=== PATIENT | female | born 1990 | race Caucasian/White ===

== ENCOUNTER 2019-08-11 17:41 | Emergency (ER) | payer BC ==
[~2019-08-11] VITALS: Ht 175.3 cm; Wt 76.7 kg
[2019-08-11] MEDS ORDERED: LOMAIRA8 MG PO (17:53)
[2019-08-11 17:54] LABS: URINE BILIRUBIN NEGATIVE (Negative); URINE BLOOD 1+ (Negative); URINE CLARITY CLEAR; URINE COLOR YELLOW; URINE GLUCOSE-RANDOM NEGATIVE (Negative); URINE KETONES NEGATIVE (Negative); URINE LEUKOCYTES NEGATIVE (Negative); URINE NITRITE NEGATIVE (Negative); URINE PROTEIN NEGATIVE (Negative); URINE SPECIFIC GRAVITY 1.025 (1.005-1.030); URINE UROBILINOGEN 0.2 E.U./dl (0.2-1.0)
[2019-08-11] MEDS ORDERED: AMITRIPTYLINE H25 M2 PO (17:54)
[2019-08-11] MEDS ORDERED: PAXIL20 MG PO (17:54)
[2019-08-11 18:02] LABS: MUCUS None Seen strn/LPF (None Seen); SQUAMOUS >10 Many /LPF (0-3); URINE RBC 0-2 Rare /HPF (0-2); URINE WBC 0-5 Rare /HPF (0-5)
[2019-08-11 18:03] LABS: BACTERIA 1-9 Few /HPF (None Seen); CASTS None Seen /LPF (None Seen); CRYSTALS None Seen /LPF (None Seen)
[2019-08-11 18:06] LABS: AMP/METHAMP Negative (Negative); BARBITURATES Negative (Negative); BENZODIAZEPINES Negative (Negative); COCAINE Negative (Negative); METHADONE Negative (Negative); OPIATES Negative (Negative); PCP Negative (Negative); THC Negative (Negative)
[2019-08-11 18:08] LABS: HEMATOCRIT 37.8 % (37.0-47.0); HEMOGLOBIN 12.9 gm/dL (12.0-15.0); MCH 30.2 pg (26.0-34.0); MCHC 34.2 g/dL (28.0-37.0); MCV 88.2 fL (80.0-100.0); MPV 6.9 fl. (7.2-11.1); RBC 4.28 mil/uL (4.20-5.00); RDW-CV 13.6 % (10.5-14.5); WBC 8.9 thou/uL (4.0-11.0)
[2019-08-11 18:18] LABS: CALCIUM 8.6 mg/dL (8.5-10.1); CREATININE 0.6 mg/dL (0.6-1.3); POTASSIUM 4.2 mmol/L (3.5-5.1)
[2019-08-11 18:23] LABS: ALBUMIN 4.1 g/dL (3.4-5.0); TOTAL BILIRUBIN 0.2 mg/dL (<0.1-1.0); TOTAL PROTEIN 7.7 g/dL (6.4-8.2)
[2019-08-11 18:35] LABS: ACETAMINOPHEN < 2 ug/mL (10-30); ALCOHOL 79 mg/dL (<10); SALICYLATE < 2.8 mg/dL (2.8-20.0)
[2019-08-12 14:13] VITALS: BP 108/60
== END 2019-08-12 14:12 ==
LOC: M.ERS 17:41
PROVIDERS: Personal Emergency Response Attendant
DX: R45.851 Suicidal ideations (principal); Z79.899 Other long term (current) drug therapy

== ENCOUNTER 2019-11-03 03:52 | Emergency (ER) | payer BC, OTHER, MEDICAID ==
[~2019-11-03 03:52] MED LIST: AMITRIPTYLINE H25 M2 PO; LOMAIRA8 MG PO; PAXIL20 MG PO
== END 2019-11-03 04:54 ==
LOC: M.ERS 03:52
DX: Z02.89 Encounter for other administrative examinations (principal)

== ENCOUNTER 2020-02-23 16:09 | Emergency (ER) | payer BC, OTHER, MEDICAID ==
[~2020-02-23] VITALS: Ht 175.3 cm; Wt 86.2 kg
[2020-02-23] MEDS ORDERED: OMEPRAZOLE40 MG PO (16:23)
[2020-02-23] MEDS ORDERED: DRIZALMA SPRINK40 MG PO (16:23)
[2020-02-23 16:29] LABS: URINE BLOOD 3+ (Negative); URINE CLARITY CLEAR; URINE COLOR YELLOW; URINE GLUCOSE-RANDOM NEGATIVE (Negative); URINE LEUKOCYTES-REFLEX NEGATIVE (Negative); URINE NITRITE-REFLEX NEGATIVE (Negative); URINE PROTEIN NEGATIVE (Negative); URINE SPECIFIC GRAVITY 1.025 (1.005-1.030); URINE UROBILINOGEN 0.2 E.U./dl (0.2-1.0)
[2020-02-23 16:37] LABS: ABSOLUTE BASOPHILS 0.1 thou/uL (0.0-0.2); ABSOLUTE LYMPHOCYTES 1.6 thou/uL (0.8-5.3); ABSOLUTE MONOCYTES 0.3 thou/uL (0.0-1.2); ABSOLUTE NEUTROPHILS 8.1 thou/uL (1.6-8.1); BASOPHILS 0.8 %; EOSINOPHILS 0.1 %; LYMPHOCYTES 15.3 %; MCHC 34.3 g/dL (28.0-37.0); MCV 87.6 fL (80.0-100.0); MONOCYTES 3.4 %; MPV 6.7 fl. (7.2-11.1); NUCLEATED RBCS 0 /100WBC; PLATELET COUNT* 414 thou/uL (150-400); POLYS 80.4 %; RBC 4.68 mil/uL (4.20-5.00); RDW-CV 13.8 % (10.5-14.5); WBC 10.2 thou/uL (4.0-11.0)
[2020-02-23 16:42] LABS: ICTOTEST (BILI CONFIRMATORY) Negative (Negative); URINE BILIRUBIN 1+ (Negative); URINE KETONES 3+ (Negative)
[2020-02-23 16:43] LABS: CRYSTALS None Seen /LPF (None Seen); MUCUS 0-3 Light strn/LPF (None Seen); SQUAMOUS >10 Many /LPF (0-3); URINE RBC 3-10 Few /HPF (0-2)
[2020-02-23 16:44] LABS: BACTERIA-REFLEX None Seen /HPF (None Seen); URINE WBC-REFLEX 0-5 Rare /HPF (0-5)
[2020-02-23 16:50] LABS: CREATININE 0.8 mg/dL (0.6-1.3); POTASSIUM 3.9 mmol/L (3.5-5.1)
[2020-02-23 16:55] LABS: ALBUMIN 4.5 g/dL (3.4-5.0); TOTAL BILIRUBIN 0.6 mg/dL (<0.1-1.0); TOTAL PROTEIN 8.6 g/dL (6.4-8.2)
[2020-02-23] MEDS ORDERED: ONDANSETRON ODT4 MG PO (18:28)
[2020-02-23] MEDS ORDERED: NORCO 5-325 TA1 EAC2 PO (18:28)
[2020-02-23 18:35] VITALS: BP 133/71
== END 2020-02-23 18:36 | disposition home or self-care (01) ==
LOC: M.ERS 16:09
PROVIDERS: Physician Assistant
DX: R10.32 Left lower quadrant pain (principal); R11.2 Nausea with vomiting, unspecified; L53.9 Erythematous condition, unspecified

== ENCOUNTER 2020-04-04 00:45 | Observation (INO) | payer BC, OTHER, MEDICAID ==
[~2020-04-04] VITALS: Ht 175.3 cm; Wt 86.2 kg
[~2020-04-04 00:45] MED LIST changes: +DRIZALMA SPRINK40 MG PO; +NORCO 5-325 TA1 EAC2 PO; +OMEPRAZOLE40 MG PO; +ONDANSETRON ODT4 MG PO
[2020-04-04 00:51] VITALS: BP 133/88
[2020-04-04 01:02] LABS: URINE BILIRUBIN NEGATIVE (Negative); URINE BLOOD 2+ (Negative); URINE CLARITY CLEAR; URINE COLOR YELLOW; URINE GLUCOSE-RANDOM NEGATIVE (Negative); URINE KETONES TRACE (Negative); URINE LEUKOCYTES-REFLEX NEGATIVE (Negative); URINE NITRITE-REFLEX NEGATIVE (Negative); URINE PROTEIN NEGATIVE (Negative); URINE SPECIFIC GRAVITY >= 1.030 (1.005-1.030); URINE UROBILINOGEN 0.2 E.U./dl (0.2-1.0)
[2020-04-04 01:07] LABS: ABSOLUTE BASOPHILS 0.1 thou/uL (0.0-0.2); ABSOLUTE EOSINOPHILS 0.2 thou/uL (0.0-0.7); ABSOLUTE LYMPHOCYTES 3.5 thou/uL (0.8-5.3); ABSOLUTE MONOCYTES 0.6 thou/uL (0.0-1.2); ABSOLUTE NEUTROPHILS 3.6 thou/uL (1.6-8.1); EOSINOPHILS 1.9 %; HEMATOCRIT 39.3 % (37.0-47.0); HEMOGLOBIN 13.4 gm/dL (12.0-15.0); LYMPHOCYTES 43.9 %; MCH 29.7 pg (26.0-34.0); MCHC 34.1 g/dL (28.0-37.0); MCV 87.2 fL (80.0-100.0); MONOCYTES 7.4 %; MPV 6.8 fl. (7.2-11.1); NUCLEATED RBCS 0 /100WBC; PLATELET COUNT* 372 thou/uL (150-400); POLYS 45.8 %; RDW-CV 13.4 % (10.5-14.5); WBC 7.9 thou/uL (4.0-11.0)
[2020-04-04 01:12] LABS: CALCIUM 8.5 mg/dL (8.5-10.1); CREATININE 0.8 mg/dL (0.6-1.3); POTASSIUM 3.5 mmol/L (3.5-5.1)
[2020-04-04 01:12] LABS: SQUAMOUS 0-3 Few /LPF (0-3); TRANSITIONAL EPITHEL CELL 0-3 Few /LPF (None Seen)
[2020-04-04 01:13] LABS: AMORPHOUS URATES Moderate /LPF (None Seen); BACTERIA-REFLEX >30 Many /HPF (None Seen); CASTS None Seen /LPF (None Seen); MUCUS 4-6 Moderate strn/LPF (None Seen); URINE RBC 3-10 Few /HPF (0-2); URINE WBC-REFLEX None Seen /HPF (0-5)
[2020-04-04 01:16] LABS: TOTAL BILIRUBIN 0.4 mg/dL (<0.1-1.0); TOTAL PROTEIN 7.4 g/dL (6.4-8.2)
[2020-04-04 04:15] VITALS: BP 130/70
[2020-04-04 04:47] VITALS: BP 113/59
[2020-04-04 08:00] VITALS: BP 111/66
[2020-04-04 10:29] LABS: CALCIUM 8.2 mg/dL (8.5-10.1); CREATININE 0.8 mg/dL (0.6-1.3); MAGNESIUM 1.8 mg/dL (1.8-2.4); POTASSIUM 3.2 mmol/L (3.5-5.1)
[2020-04-04 17:06] VITALS: BP 130/58
[2020-04-04 20:00] VITALS: BP 129/83
[2020-04-05 07:55] VITALS: BP 109/61
[2020-04-05] MEDS ORDERED: ZOFRAN ODT4 MG PO (08:52)
[2020-04-05] MEDS ORDERED: HYDROCODON-ACE1 EAC7 PO (08:52)
[2020-04-05 09:29] VITALS: BP 109/61
--- NOTE | 2020-05-02 19:25 | OP ---
[address] [address] OPERATIVE REPORT Name: BLAYNE LOCKETT Room: [address] Deondre Brown#: [id number] Admission: 04/04/20 Attend Phys: Jose Steinberg MD Discharge: 04/05/20 Date of : 89 Report #: [id number] THIS REPORT FOR: //name// cc: Martha Teran Tara DO ~ CC: Jose Teran PREOPERATIVE DIAGNOSIS: Suspected internal hernia. POSTOPERATIVE DIAGNOSIS: Suspected internal hernia. OPERATIVE PROCEDURE DONE: Diagnostic laparoscopy and closure of internal hernia defect. 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 OPERATIVE FINDINGS: The patient was noted to have a 2 cm hernial defect at the jejunojejunostomy. I did not see obvious evidence of herniation of bowel through the defect. INDICATIONS FOR THE PROCEDURE: The patient is a 29-year-old female who has a history of Aline-en-Y gastric bypass, presented with features of acute onset of abdominal pain and there was question of an internal hernia. The patient was advised diagnostic laparoscopy and possible repair of the hernia. DESCRIPTION OF PROCEDURE: After explaining to the patient in detail and informed consent was obtained, the patient was identified in the preoperative holding area. The patient was transferred to the operating room and was placed in supine position. Sequential compressive devices were placed for DVT prophylaxis. Preoperative antibiotics were given. After induction of anesthesia, the abdomen was prepped and draped in a sterile fashion. Through a right upper quadrant 1 cm incision and using Optiview technique, peritoneal cavity was entered and pneumoperitoneum was created. Thereafter, under direct vision, another 5 mm trocar was placed in the right lower quadrant and another 5 mm trocar was placed in the right flank. On initial inspection, the bowel appeared normal. I did not see any obvious evidence of obstruction. I inspected the Aline limb downstream and identified the jejunojejunostomy. I then identified the biliary limb and the common channel downstream. I inspected the bowel up and down at least twice. I did not see any evidence of internal herniation, although I was able to identify a 2 cm sized hernial defect at the jejunojejunostomy. I am uncertain if there was a hernia prior to surgery which was going in and out, but I did not see anything that was obvious at this time of surgery. I then used a 2-0 silk suture to close this hernial defect with a continuous suture. Absolute hemostasis was ensured. [place] [address] OPERATIVE REPORT Name: BLAYNE LOCKETT Room: [address] Deondre Brown#: [id number] Admission: 04/04/20 Attend Phys: Jose Steinberg MD Discharge: 04/05/20 Date of : 89 Report #: [id number] Incisions were then closed with 4-0 Monocryl. Dermabond was applied. The patient was stable at the end of the procedure. The patient was awoken from anesthesia and was transferred to the recovery room in stable condition. ESTIMATED BLOOD LOSS: Minimal. CONDITION OF THE PATIENT: Stable. FLUIDS GIVEN: Per anesthesia notes. SPECIMEN SENT: None. COMPLICATIONS: None. ANESTHESIA: General anesthesia. <ELECTRONICALLY SIGNED> By: Valente Torres MD 05/02/20 [id number] Torres MD /nt
== END 2020-04-05 12:38 | disposition home or self-care (01) ==
LOC: M.ERS 00:45 → M.TBA-ER 03:41 → M.ORTHSURG 03:41
PROVIDERS: Family Medicine; Internal Medicine; ADMIT Internal Medicine; ATTEND Internal Medicine
DX: R10.9 Unspecified abdominal pain (principal); K46.9 Unspecified abdominal hernia without obstruction or gangrene; K63.1 Perforation of intestine (nontraumatic); Z98.84 Bariatric surgery status; Z79.899 Other long term (current) drug therapy; Z20.828 Contact with and (suspected) exposure to other viral communicable diseases